=== PATIENT | female | born 1960 | race Hispanic/Latino ===

== ENCOUNTER 2020-12-11 06:42 | Outpatient (CLI) | payer OTHER ==
[2020-12-11 07:25] LABS: Albumin 3.9 g/dL (3.9-5); Calcium 9.4 mg/dL (8.4-10.2)
[2020-12-11 07:43] LABS: ABG Base Excess -0.8 mmol/L (-2.0-3.0); ABG Methemoglobin 0.6 % (0.0-1.5); ABG Oxygen Saturation 95.6 % (95.0-99.0); ABG PCO2 40.2 mm Hg; ABG PH 7.393 pH Units (7.350-7.450)
--- NOTE | 2020-12-11 11:06 | PET Report ---
PET/CT HISTORY: R91.8 /E78.00. Initial staging of lung cancer. Pulmonary nodules TECHNIQUE: The patient's fasting blood glucose was 85. The patient weighed 164 lbs. The patient wa s injected with 15.3 mCi of FDG in the left hand at 0824 hours and imaging was started at 0923 hours. The patient was imaged from the skull base to the thighs. All CT scans at this location are perform ed using CT dose reduction for ALARA by means of automated exposure control. Images were reviewed on a workstation. COMPARISON: None at this facility FINDINGS: IMAGED BRAIN: [Physiologic FDG uptake. NECK: Physiologic FDG uptake. CHEST WALL: Physiologic FDG uptake. MEDIASTINUM: Physiologic FDG uptake. LUNGS: Physiologic FDG uptake. Mild underlying centrilobular and paraseptal emphysematous changes ar e identified. There is a tiny 5.6 mm subpleural nodule in the lateral left lower lobe which demonstra kaya a max SUV of 0.9. Overall this has a benign appearance and is too small to characterize. No aggre ssive or spiculated lesion is appreciated. HEPATOBILIARY: Physiologic FDG uptake. Large 2.2 cm calcified gallstone is noted in the fundus of th e gallbladder. PANCREAS: Physiologic FDG uptake. SPLEEN: Physiologic FDG uptake. KIDNEYS/BLADDER: Physiologic FDG uptake. The right kidney is mildly atrophic with a few punctate sto phyllis. The left kidney is unremarkable. ADRENAL GLANDS: Physiologic FDG uptake. GI/MESENTERY: Physiologic FDG uptake. PELVIC VISCERA: Physiologic FDG uptake. LYMPH NODES: Physiologic FDG uptake. OSSEOUS STRUCTURES: Physiologic FDG uptake. No suspicious bony lesions are identified. There does ap pear to be mild discontinuity and uptake in the right anterior costosternal cartilage with max SUV me asuring 3.5. This appears traumatic in nature. There is no evidence for associated soft tissue mass. ADDITIONAL FINDINGS: None. IMPRESSION: Essentially negative PET portion of this study for malignancy. There are mild underlying emphysematous changes. A 5.6 mm subpleural nodule is identified in the late ral left lower lobe with max SUV measuring 0.9. This nodule is too small to characterize but appears to be PET negative. Consider CT follow-up in 3-6 months to ensure stability. No suspicious lung mass or adrianna activity is detected. There is mild uptake in the right anterior costosternal cartilage as described which appears traumati c in nature. Please correlate with the patient's clinical history. Signer Name: Wayne Tellez Jr, MD Signed: 12/11/2020 11:01 AM Workstation Name: [id number]
== END 2020-12-11 06:43 | disposition home or self-care (01) ==
LOC: PET 06:42
PROVIDERS: ATTEND Internal Medicine
DX: J43.9 Emphysema, unspecified (principal); R91.8 Other nonspecific abnormal finding of lung field; E78.00 Pure hypercholesterolemia, unspecified; J30.9 Allergic rhinitis, unspecified; K21.9 Gastro-esophageal reflux disease without esophagitis; J90 Pleural effusion, not elsewhere classified; R91.1 Solitary pulmonary nodule; N20.0 Calculus of kidney
CPT/HCPCS: 36415; 36600; 78815; 80053; 82803; 82962; A9552

== ENCOUNTER 2021-05-19 11:12 | Outpatient (CLI) | payer OTHER ==
[2021-05-19 12:01] LABS: BUN/Creatinine Ratio 23; Blood Urea Nitrogen 21 mg/dL (7-17); Calcium 9.8 mg/dL (8.4-10.2); Hemolysis Index 3
--- NOTE | 2021-05-19 14:31 | Cat Scan Report ---
CT CHEST WITH CONTRAST INDICATION / CLINICAL INFORMATION: OTHER NON SPECIFIC ABNORMAL FINDINGS OF LUNG 100 ML OMNI 300 . TECHNIQUE: Axial CT images were obtained through the chest after 100 cc IV contrast. Sagittal and coronal reform atted images. All CT scans at this location are performed using CT dose reduction for ALARA by means of automated exposure control. COMPARISON: PET/CT dated 12/11/2020 FINDINGS: HEART: No significant abnormality. THORACIC AORTA: No significant abnormality. MEDIASTINUM and [place]: No significant abnormality. LUNGS: No acute air space or interstitial disease. Mild centrilobular and paraseptal emphysematous c hanges are again noted. The previously described 5.6 mm nodule in the lateral left lower lobe is unch anged. There is also a 7.2 mm subpleural nodule in the posterior right lower lobe. In retrospect, thi s is vaguely identified on the previous exam and is unchanged. No additional nodule or suspicious nod ule is detected. PLEURA: No significant pleural effusion. No pneumothorax. SKELETAL SYSTEM: No suspicious bony lesion is detected. UPPER ABDOMEN: Large gallstone measuring 2.3 cm is again noted. The right kidney is mildly atrophic. No visceral mass or adenopathy in the upper abdomen. ADDITIONAL FINDINGS: None. IMPRESSION: Stable findings since the PET CT dated 12/11/2020. Signer Name: Wayne Tellez Jr, MD Signed: 05/19/2021 2:26 PM Workstation Name: [id number]
== END 2021-05-19 11:13 | disposition home or self-care (01) ==
LOC: CT 11:12
PROVIDERS: ATTEND Internal Medicine
DX: J43.2 Centrilobular emphysema (principal); R91.8 Other nonspecific abnormal finding of lung field; J30.9 Allergic rhinitis, unspecified; K21.9 Gastro-esophageal reflux disease without esophagitis; R91.1 Solitary pulmonary nodule; K80.20 Calculus of gallbladder without cholecystitis without obstruction; N26.1 Atrophy of kidney (terminal)
CPT/HCPCS: 36415; 71260; 80048; Q9967

== ENCOUNTER 2021-10-27 00:08 | Emergency (ER) | payer OTHER ==
[2021-10-27 00:45] VITALS: BP 174/95
--- NOTE | 2021-10-27 03:13 | Emergency Department Report ---
ED Head Trauma HPI - General Chief complaint: Head Injury Stated complaint: FALL Time Seen by Provider: 10/27/21 02:06 Source: patient Mode of arrival: Ambulatory Limitations: No Limitations - History of Present Illness Initial comments: Patient presents secondary to head injury. She tripped and fell while walking out of the bedroom. She struck her head on the hardwood floor. She did put her arms out to catch herself. This happened about 11:00 at night. Patient is complaining of forehead pain. She states that headache is improved. She does state that her neck is gotten a little more stiff over the night. She has no back pain. There is no numbness or tingling in the arms or legs. There is no loss of consciousness. She denies nausea or vomiting. She is not anticoagulated. - Related Data Previous Rx's Medication Instructions Recorded Last Taken Type Hydrocodone Bit/Acetaminophen 1 each PO Q6HR #20 tablet 08/13/13 Unknown Rx [Lortab 5-500 Tablet] Loratadine (Nf) [Claritin] 10 mg PO DAILY #30 tablet 08/13/13 Unknown Rx cephALEXin [Keflex] 500 mg PO Q6H #40 capsule 08/13/13 Unknown Rx Hydrocodone Bit/Acetaminophen 1 each PO Q4-6H #10 tablet 09/24/13 Unknown Rx [Lortab 5-500 Tablet] Ibuprofen [Motrin] 800 mg PO TID PRN #14 tablet 09/24/13 Unknown Rx Allergies/Adverse reactions: Allergies Allergy/AdvReac Type Severity Reaction Status Date / Time No Known Allergies Allergy Verified 09/14/13 01:57 ED Review of Systems ROS: Stated complaint: FALL Other details as noted in HPI Comment: All other systems reviewed and negative Constitutional: denies: fever Eyes: denies: vision change ENT: denies: throat pain Respiratory: denies: cough Cardiovascular: denies: chest pain Endocrine: denies: unexplained weight loss Gastrointestinal: denies: vomiting Genitourinary: denies: dysuria Musculoskeletal: denies: back pain Skin: denies: rash Neurological: as per HPI Hematological/Lymphatic: denies: easy bruising ED Past Medical Hx - Past Medical History Previous Medical History?: Yes Hx Renal Disease: Yes (DC'd dialysis 1983) - Surgical History Past Surgical History?: No Additional Surgical History: Shunt put in right arm (1983); (1983) - Family History Family history: hypertension - Social History Smoking Status: Current Every Day Smoker Substance Use Type: None - Medications Home Medications: Home Medications Medication Instructions Recorded Confirmed Last Taken Type Hydrocodone Bit/Acetaminophen 1 each PO Q6HR #20 tablet 08/13/13 Unknown Rx [Lortab 5-500 Tablet] Loratadine (Nf) [Claritin] 10 mg PO DAILY #30 tablet 08/13/13 Unknown Rx cephALEXin [Keflex] 500 mg PO Q6H #40 capsule 08/13/13 Unknown Rx Hydrocodone Bit/Acetaminophen 1 each PO Q4-6H #10 tablet 09/24/13 Unknown Rx [Lortab 5-500 Tablet] Ibuprofen [Motrin] 800 mg PO TID PRN #14 tablet 09/24/13 Unknown Rx ED Physical Exam - General Limitations: No Limitations, Other (Pulse ox noted and normal) General appearance: alert, in no apparent distress - Head Head exam: Present: normocephalic, other (Hematoma with abrasion to the left forehead that is approximately 5 cm in diameter) - Eye Eye exam: Present: normal appearance, PERRL, EOMI. Absent: scleral icterus - ENT ENT exam: Present: normal orophraynx, normal external ear exam - Neck Neck exam: Present: normal inspection, tenderness (Paraspinous), other (No midline tenderness or step-off). Absent: meningismus - Respiratory Respiratory exam: Present: normal lung sounds bilaterally. Absent: respiratory distress - Cardiovascular Cardiovascular Exam: Present: regular rate, normal rhythm - GI/Abdominal GI/Abdominal exam: Present: soft. Absent: tenderness - Extremities Exam Extremities exam: Present: normal capillary refill. Absent: pedal edema - Back Exam Back exam: Absent: CVA tenderness (R), CVA tenderness (L) - Neurological Exam Neurological exam: Present: alert, oriented X3, CN II-XII intact, normal gait, reflexes normal, other (No pronator drift or dysdiadochokinesia). Absent: motor sensory deficit - Psychiatric Psychiatric exam: Present: normal affect, normal mood - Skin Skin exam: Present: warm, dry ED Course Vital Signs 10/27/21 00:41 Temperature 97.7 F Pulse Rate 90 Respiratory 16 Rate Blood Pressure 174/95 [Left] O2 Sat by Pulse 96 Oximetry - Reevaluation(s) Reevaluation #1: 10/27/21 03:26 Patient was discharged - Medical Decision Making Patient presents secondary to a head injury. She tripped and fell. She is not anticoagulated. There is no neurologic symptom or deficit. She does not have any history of loss of consciousness. There is no nausea or vomiting. She has no symptoms suggestive of increased intracranial pressure that would be concerning for subdural or epidural hematomas. Patient was treated symptomatically and discharged. I do not believe CT is necessary. She has some paraspinous strain but no midline tenderness. I am not concerned for cervical fracture or cord injury. Critical Care Time: No Critical care attestation.: If time is entered above; I have spent that time in minutes in the direct care of this critically ill patient, excluding procedure time. ED Disposition Clinical Impression: Fall Qualifiers: Encounter type: initial encounter Qualified Code(s): W19.XXXA - Unspecified fall, initial encounter Forehead contusion Qualifiers: Encounter type: initial encounter Qualified Code(s): S00.83XA - Contusion of other part of head, initial encounter Acute cervical myofascial strain Qualifiers: Encounter type: initial encounter Qualified Code(s): S16.1XXA - Strain of muscle, fascia and tendon at neck level, initial encounter Disposition: 01 HOME / SELF CARE / HOMELESS Is pt being admited?: No Condition: Stable Instructions: Facial or Scalp Contusion, Contusion, [id number], Cervical Sprain Additional Instructions: Apply ice to sore areas. Use Tylenol or Advil for pain. Return for problems. Follow-up with your regular doctor for recheck and further management. Return for problems. Referrals: PERNELL CHRISTOPHER MD [Staff Physician] - 3-5 Days
== END 2021-10-27 03:40 | disposition home or self-care (01) ==
LOC: ED 00:08
DX: S16.1XXA Strain of muscle, fascia and tendon at neck level, initial encounter (principal); S00.83XA Contusion of other part of head, initial encounter; F17.200 Nicotine dependence, unspecified, uncomplicated; W18.39XA Other fall on same level, initial encounter; Y93.89 Activity, other specified; Y92.89 Other specified places as the place of occurrence of the external cause; Y99.8 Other external cause status
CPT/HCPCS: 99282